=== PATIENT | female | born 2000 | race Hispanic/Latino ===

== ENCOUNTER 2021-11-17 17:29 | Emergency (ER) | payer SELFPAY | END 2021-11-17 17:45 | disposition left against medical advice (07) | LOC: NAV ERS 17:29 | DX: Z53.21 Procedure and treatment not carried out due to patient leaving prior to being seen by health care provider (principal) ==

== ENCOUNTER 2022-12-26 20:58 | Emergency (ER) | payer MEDICAID ==
[2022-12-26] MEDS ORDERED: Acetaminophen 500 MG TAB ONE (21:18)
== END 2022-12-26 22:00 | disposition home or self-care (01) ==
LOC: NAV ERS 20:58
DX: O99.511 Diseases of the respiratory system complicating pregnancy, first trimester (principal); Z3A.01 Less than 8 weeks gestation of pregnancy
CPT/HCPCS: 87081; 87430; 87804; 99283

== ENCOUNTER 2022-12-31 19:01 | Emergency (ER) | payer MEDICAID, OTHER ==
[2022-12-31] MEDS ORDERED: Acetaminophen 500 MG TAB ONE (19:40)
== END 2022-12-31 19:45 | disposition home or self-care (01) ==
LOC: NAV ERS 19:01
DX: O99.351 Diseases of the nervous system complicating pregnancy, first trimester (principal); G44.309 Post-traumatic headache, unspecified, not intractable; Z3A.01 Less than 8 weeks gestation of pregnancy
CPT/HCPCS: 99283

== ENCOUNTER 2023-02-10 15:13 | Emergency (ER) | payer MEDICAID, OTHER ==
[2023-02-10] MEDS ORDERED: Ondansetron ODT 4 MG TAB ONE (15:41)
[2023-02-10] MEDS ORDERED: Acetaminophen 500 MG TAB ONE (15:41)
[2023-02-10 15:45] LABS: #Monocytes 0.9 thou/uL (0.11-0.59); #Neutrophils 7.1 thou/uL (1.40-6.50); %Basophils 0.4 % (0.0-1.0); %Lymphocytes 11.3 % (21.0-51.0); %Neutrophils 78.2 % (42.0-75.0); Hematocrit 40.7 % (36.0-47.0); Hemoglobin 13.2 g/dL (12.0-16.0); Mean Corpuscular HGB CONC 32.4 g/dL (32.0-36.0); Mean Corpuscular Hemoglobin 25.3 pg (27.0-31.0); Mean Corpuscular Volume 78.1 fl (78.0-98.0); Mean Platelet Volume 6.6 fL (7.4-10.4); Platelet Count 211 10x3/uL (130-400); RBC Distribution Width 12.1 % (11.5-14.5); Red Blood Cell (RBC) Count 5.21 mill/uL (4.20-5.40)
[2023-02-10 16:00] LABS: ALT (SGPT) 56 U/L (8-55); AST (SGOT) 41 U/L (5-34); Alkaline Phosphatase 57 U/L (40-110); Anion Gap 16 mmol/L (10-20); BUN (Urea Nitrogen) 5 mg/dL (7.0-18.7); Bilirubin, Total 0.3 mg/dL (0.2-1.2); Calc. Creatinine Clearance 0 mL/min (70-130); Calcium 9.5 mg/dL (7.8-10.44); Carbon Dioxide 22 mmol/L (22-29); Chloride 97 mmol/L (98-107); Estimated GFR 125; Globulin 4.2 g/dL (2.4-3.5); Glucose 112 mg/dL (70-105); Potassium 3.9 mmol/L (3.5-5.1); Protein, Total 8.2 g/dL (6.0-8.3); Sodium 131 mmol/L (136-145)
[2023-02-10 16:24] LABS: SARS-CoV-2 NAA Rapid Test Not Detected (NotDetected)
[2023-02-10 16:40] LABS: Bilirubin Negative (Negative); Blood, Urine Negative (Negative); Clarity Clear (Clear); Glucose, Urine (Dipstick) Negative (Negative); Ketone, Urine 40 mg/dL (Negative); Leukocyte Trace (Negative); Nitrite Negative (Negative); Protein, Urine (Dipstick) Trace mg/dL (Neg-Trace); Urobilinogen 0.2 mg/dL (Less than 2); pH, Urine 5.5 (5.0-9.0)
[2023-02-10 16:41] LABS: CAUTI Indications for Culture Pregnancy
[2023-02-10 16:45] LABS: Bacteria/HPF 2+ HPF (None Seen); RBC/HPF 0-3 HPF (0-3); WBC/HPF 0-3 HPF (0-3)
[2023-02-10 16:47] LABS: Urine Culture Reflex Yes Yes
[2023-02-10 16:48] LABS: Amphetamine Not Detected (NotDetected); Barbiturates Screen Not Detected (NotDetected); Benzodiazepine Screen Not Detected (NotDetected); Cocaine Metabolite Screen Not Detected (NotDetected); Methadone Not Detected (NotDetected); Methamphetamine Not Detected (NotDetected); Opiate Screen Not Detected (NotDetected); Oxycodone Screen Not Detected (NotDetected); Phencyclidine (PCP) Not Detected (NotDetected); THC/Cannabinoid Screen Detected (NotDetected); Tricyclic Screen Not Detected (NotDetected)
[2023-02-10 17:33] LABS: Bilirubin Negative (Negative); Blood, Urine Trace (Negative); Clarity Clear (Clear); Glucose, Urine (Dipstick) Negative (Negative); Ketone, Urine Trace mg/dL (Negative); Leukocyte Trace (Negative); Nitrite Negative (Negative); Protein, Urine (Dipstick) Negative (Neg-Trace); Urobilinogen 0.2 mg/dL (Less than 2)
[2023-02-10 17:34] LABS: Bacteria/HPF 1+ HPF (None Seen); CAUTI Indications for Culture Pregnancy; RBC/HPF 0-3 HPF (0-3); Specific Gravity, Urine 1.006 (1.002-1.036); WBC/HPF 0-3 HPF (0-3)
[2023-02-10] MEDS ORDERED: cefTRIAXone (ROCEPHIN) 1 GM VIAL ONE (18:13)
[2023-02-10] MEDS ORDERED: Sodium Chloride 0.9% 100 ML ONE (18:18)
== END 2023-02-10 19:15 | disposition home or self-care (01) ==
LOC: NAV ERS 15:13
DX: O23.41 Unspecified infection of urinary tract in pregnancy, first trimester (principal); O21.9 Vomiting of pregnancy, unspecified; O99.891 Other specified diseases and conditions complicating pregnancy; E86.0 Dehydration; Z3A.12 12 weeks gestation of pregnancy; Z20.822 Contact with and (suspected) exposure to COVID-19
CPT/HCPCS: 80053; 80306; 81001; 85025; 87086; 96361; 96365; J0696; J3490; Q0162

== ENCOUNTER 2025-04-27 17:23 | Emergency (ER) | payer OTHER, SELFPAY | END 2025-04-27 18:30 | disposition home or self-care (01) | LOC: NAV ERS 17:23 | DX: A60.04 Herpesviral vulvovaginitis (principal) | CPT/HCPCS: 99283 ==